=== PATIENT | male | born 1970 | race Caucasian/White ===

== ENCOUNTER 2022-03-19 09:40 | Inpatient (IN) | payer BC ==
[~2022-03-19] VITALS: Ht 182.9 cm; Wt 111.4 kg
[2022-03-19 10:20] LABS: BASOPHILS # (AUTO) 0.1 X10'3 (0-0.2); BASOPHILS % (AUTO) 0.5 % (0-1); EOSINOPHILS # (AUTO) 0.2 X10'3 (0-0.9); HEMATOCRIT 47.8 % (42.0-52.0); LYMPHOCYTES # (AUTO) 2.4 X10'3 (1.1-4.8); LYMPHOCYTES % (AUTO) 19.4 % (21-51); MEAN CORPUSCULAR HEMOGLOBIN 30.8 PG (27.0-31.0); MEAN CORPUSCULAR HGB CONC 33.4 g/dL (33.0-36.5); MEAN CORPUSCULAR VOLUME 92.3 FL (78-98); MEAN PLATELET VOLUME 8.8 FL (7.4-10.4); MONOCYTES # (AUTO) 1.4 X10'3 (0-0.9); NEUTROPHILS # (AUTO) 8.3 X10'3 (1.8-7.7); NEUTROPHILS % (AUTO) 67.1 % (42-75); PLATELET COUNT 255 X10'3 (140-440); RED BLOOD COUNT 5.18 X10'6 (4.70-6.10); RED CELL DISTRIBUTION WIDTH 12.9 % (11.5-14.5); WHITE BLOOD COUNT 12.4 X10'3 (4.5-11.0)
[2022-03-19 10:21] LABS: CLARITY,URINE CLEAR (Clear); COLOR,URINE YELLOW (Yellow); GLUCOSE, URINE NEGATIVE (Neg); KETONES,URINE NEGATIVE (Neg); LEUKOCYTE ESTERASE ,URINE NEGATIVE (Neg); NITRITES, URINE NEGATIVE (Neg); OCCULT BLOOD,URINE TRACE-INTACT (Neg); PH,URINE 5.5 (4.8-8.0); PROTEIN,URINE NEGATIVE (Neg); UROBILINOGEN,URINE 0.2 E.U/dL (0.2-1.0)
[2022-03-19 10:25] LABS: UA COLLECTION TYPE CLN CATCH MIDSTREAM
[2022-03-19 10:26] LABS: SQUAMOUS EPITHELIAL CELL,UR FEW /LPF (FEW)
[2022-03-19 10:27] LABS: BACTERIA,URINE FEW /HPF (Neg); RBC,URINE 0-2 /HPF (0-2); WBC,URINE 0-4 /HPF (0-4)
[2022-03-19 10:35] LABS: ALANINE AMINOTRANSFERASE 34 U/L (12-78); ALBUMIN 4.1 G/DL (3.4-5.0); ALKALINE PHOSPHATASE 93 IU/L (46-116); ANION GAP 7 (8-16); ASPARTATE AMINO TRANSFERASE 20 U/L (10-37); BILIRUBIN,TOTAL 0.6 MG/DL (0.1-1.0); BLOOD UREA NITROGEN 23 MG/DL (7-18); BUN/CREATININE RATIO 12.4 (5.4-32.0); CALCIUM 9.8 MG/DL (8.5-10.1); CHLORIDE 98 MMOL/L (99-107); CREATININE 1.85 MG/DL (0.60-1.10); GLUCOSE 184 MG/DL (70-104); LIPASE 148 U/L (73-393); SODIUM 136 MMOL/L (135-145); TOTAL PROTEIN 8.2 G/DL (6.4-8.2); eGFR 39 ML/MIN
--- NOTE | 2022-03-19 11:23 | NUR ---
Received a patient in bed 4 after a witnessed syncopal episode.
[2022-03-19] MEDS ORDERED: normal saline 1000ml 1,000 ML IV ONE (11:50)
[2022-03-19] MEDS ORDERED: OMEP20CA16 PO (13:20)
[2022-03-19] MEDS ORDERED: SERT-434 PO (13:20)
[2022-03-19] MEDS ORDERED: ALLO300T2 PO (13:20)
[2022-03-19] MEDS ORDERED: VALS320T2 PO (13:20)
[2022-03-19] MEDS ORDERED: BUPR200T41 PO (13:20)
[2022-03-19] MEDS ORDERED: LOP12.5T PO (13:20)
[2022-03-19] MEDS ORDERED: morphine 4 MG/ML inj SYRINge IV ONE (13:55)
[2022-03-19] MEDS ORDERED: ondansetron/PF 4mg/2ml inj IV ONE (13:55)
[2022-03-19] MEDS ORDERED: non-formulary drug (Omeprazole 1 CAP) PO PRN (13:55)
[2022-03-19] MEDS ORDERED: pantoprazole 40mg Tablet.DR PO PRN ×3 (13:57→14:00)
[2022-03-19] MEDS ORDERED: HYDROcodone/acetaminophen 10/325mg tab PO PRN (14:00)
[2022-03-19] MEDS ORDERED: mag hydrox/Alum hydrox/simeth 30ml oral suspension PO PRN (14:00)
[2022-03-19] MEDS ORDERED: morphine 2 MG/ML inj. syringe IV PRN (14:00)
[2022-03-19] MEDS ORDERED: ondansetron/PF 4mg/2ml inj IV PRN (14:00)
[2022-03-19] MEDS ORDERED: acetaminophen 325mg tablet PO PRN ×2 (14:00)
[2022-03-19] MEDS ORDERED: magnesium hydroxide 30ml (MOM) UD suspension PO PRN (14:00)
[2022-03-19] MEDS ORDERED: HYDROcodone/acetaminophen 5mg/325mg tablet PO PRN (14:00)
[2022-03-19] MEDS: normal saline 1000ml 1,000 ML IV SCH ×2 (14:12→23:07)
--- NOTE | 2022-03-19 17:25 | NUR ---
harjinder CRUMP in the room.
[2022-03-19] MEDS: metoprolol tartrate 12.5mg (1/2 tablet) PO SCH (17:33)
[2022-03-19] MEDS: morphine 2 MG/ML inj. syringe IV PRN (17:48)
--- NOTE | 2022-03-19 20:35 | NUR ---
PT HAD DINNER AND NOW IS TALKING WITH FAMILY AT BEDSIDE.
[2022-03-19] MEDS: docusate sod 100mg capsule PO SCH (20:39)
[2022-03-19 22:00] VITALS: BP 128/72
[2022-03-19] MEDS ORDERED: zolpidem 5mg tablet PO PRN (22:25)
[2022-03-19] MEDS ORDERED: diphenhydrAMINE 25mg capsule PO PRN (22:50)
[2022-03-19] MEDS: losartan 50mg tablet PO SCH (23:04)
[2022-03-19] MEDS: tamsulosin 0.4mg capsule PO SCH (23:05)
[2022-03-20] VITALS (16 sets, daily range): BP systolic 110–154; BP diastolic 63–93
[2022-03-20] MEDS: morphine 2 MG/ML inj. syringe IV PRN (02:32)
[2022-03-20 05:56] LABS: BASOPHILS % (AUTO) 0.4 % (0-1); EOSINOPHILS # (AUTO) 0.2 X10'3 (0-0.9); HEMATOCRIT 43.2 % (42.0-52.0); HEMOGLOBIN 14.7 g/dl (14.0-17.9); LYMPHOCYTES # (AUTO) 1.9 X10'3 (1.1-4.8); LYMPHOCYTES % (AUTO) 20.8 % (21-51); MEAN CORPUSCULAR HGB CONC 33.9 g/dL (33.0-36.5); MEAN CORPUSCULAR VOLUME 91.3 FL (78-98); MEAN PLATELET VOLUME 8.5 FL (7.4-10.4); MONOCYTES # (AUTO) 0.9 X10'3 (0-0.9); MONOCYTES % (AUTO) 10.2 % (2-12); NEUTROPHILS % (AUTO) 66.6 % (42-75); PLATELET COUNT 205 X10'3 (140-440); RED BLOOD COUNT 4.73 X10'6 (4.70-6.10); RED CELL DISTRIBUTION WIDTH 12.8 % (11.5-14.5); WHITE BLOOD COUNT 8.9 X10'3 (4.5-11.0)
[2022-03-20 06:01] LABS: ALBUMIN 3.4 G/DL (3.4-5.0); ANION GAP 8 (8-16); BLOOD UREA NITROGEN 20 MG/DL (7-18); BUN/CREATININE RATIO 11.2 (5.4-32.0); CALCIUM 9.1 MG/DL (8.5-10.1); CHLORIDE 102 MMOL/L (99-107); CREATININE 1.79 MG/DL (0.60-1.10); GLUCOSE 125 MG/DL (70-104); POTASSIUM 4.4 MMOL/L (3.5-5.1); SODIUM 137 MMOL/L (135-145); eGFR 40 ML/MIN
[2022-03-20] MEDS: normal saline 1000ml 1,000 ML IV SCH ×2 (07:41→20:33)
[2022-03-20] MEDS: allopurinol 300 MG tablet PO SCH (07:43)
[2022-03-20] MEDS: sertraline 50mg tablet PO SCH (07:44)
[2022-03-20] MEDS: docusate sod 100mg capsule PO SCH ×2 (07:44→20:32)
--- NOTE | 2022-03-20 09:30 | NUR ---
Received note that patient tenative scheduled time for surgery is around 12-1300 this afternoon. Advised patient and who is at bedside. I advised patient and I would keep them in the loop of any changes
[2022-03-20] MEDS: BUPROPION HCL 200 MG PO SCH (09:47)
--- NOTE | 2022-03-20 13:00 | NUR ---
Called Damien Or charge to get ETA for surgery per patients request. Per Damien it is now looking like maybe around 1500. Advised patient due to patient being asleep.
--- NOTE | 2022-03-20 15:30 | NUR ---
Called Damien the OR charge again about status for patients surgery. I went into patients room and spoke to the again due to patient being asleep. The OR is very backed up and it looks like the surgery will be later. I have no new time at this time. Patients said " Oh the doctor is going to be tired" I advised patients that the back up is not due to the urologist there are all kinds of surgeries going on. Patient still sleeping. All questions answered at this time and she knows that the OR zinc furnace charger Damien texted Dr Esquivel this am and advised that and patient would like to speak with Prior to surgery.
[2022-03-20] MEDS: metoprolol tartrate 12.5mg (1/2 tablet) PO SCH (17:00)
[2022-03-20] MEDS ORDERED: iohexol 350MG/ML 100ml bottle IV ONE (17:21)
[2022-03-20] MEDS ORDERED: midazolam 1 mg/ML 2ml injection ONE (17:34)
[2022-03-20] MEDS ORDERED: fentaNYL/PF 50MCG/1 ML 2ML syringe ONE (17:34)
[2022-03-20] MEDS ORDERED: clindamycin-Cleocin 900mg/D5W 50 ML IV ONE (17:59)
[2022-03-20] MEDS ORDERED: propofol inj 20 ML IV ONE (18:17)
--- NOTE | 2022-03-20 18:25 | NUR ---
Received from OR via , accompanied by Anesthesiologist and report given by Anesthesiolgist. PATIENT WAKING UP, NO S/S OF PAIN, V/S STABLE, SCD ON, CSM INTACT, NO DRAINAGE SURGICAL SIGHT CLEAR CYSTOSCOPY, 20G RUE
--- NOTE | 2022-03-20 18:27 | NUR ---
Problems reprioritized. Patient report given, questions answered & plan of care reviewed with Prudence RN.
--- NOTE | 2022-03-20 18:46 | NUR ---
RECEIVED REPORT FROM [facility] AND PATIENT WILL BE ON THE UNIT SHORTLY.
--- NOTE | 2022-03-20 18:56 | NUR ---
Patient in room [facility]. I have received report from HORACE CRUMP and had the opportunity to ask questions and assume patient care.
--- NOTE | 2022-03-20 19:05 | NUR ---
PATIENT A&OX4, DENIES PAIN, V/S STABLE, SCD ON, CSM INTACT, NO DRAINAGE SURGICAL SIGHT CLEAR CYSTOSCOPY, 20G RUE. TAKEN TO [facility] AND HOOKED UP TO MONITORS IN ROOM AND REPORT GIVEN TO RN WHO HAS TAKEN OVER PATIENT CARE.
[2022-03-20] MEDS: tamsulosin 0.4mg capsule PO SCH (20:32)
[2022-03-20] MEDS: losartan 50mg tablet PO SCH (20:32)
[2022-03-21] VITALS: BP 133/86
[2022-03-21 05:59] LABS: BASOPHILS # (AUTO) 0.1 X10'3 (0-0.2); BASOPHILS % (AUTO) 0.6 % (0-1); EOSINOPHILS % (AUTO) 0.1 % (0-6); HEMATOCRIT 44.3 % (42.0-52.0); HEMOGLOBIN 15.3 g/dl (14.0-17.9); LYMPHOCYTES # (AUTO) 0.8 X10'3 (1.1-4.8); LYMPHOCYTES % (AUTO) 9.2 % (21-51); MEAN CORPUSCULAR HEMOGLOBIN 31.3 PG (27.0-31.0); MEAN CORPUSCULAR HGB CONC 34.4 g/dL (33.0-36.5); MEAN CORPUSCULAR VOLUME 90.9 FL (78-98); MEAN PLATELET VOLUME 8.7 FL (7.4-10.4); MONOCYTES # (AUTO) 0.3 X10'3 (0-0.9); MONOCYTES % (AUTO) 3.1 % (2-12); NEUTROPHILS # (AUTO) 7.5 X10'3 (1.8-7.7); PLATELET COUNT 225 X10'3 (140-440); RED BLOOD COUNT 4.88 X10'6 (4.70-6.10); RED CELL DISTRIBUTION WIDTH 12.8 % (11.5-14.5); WHITE BLOOD COUNT 8.6 X10'3 (4.5-11.0)
[2022-03-21 06:00] VITALS: BP 128/59
[2022-03-21] MEDS: normal saline 1000ml 1,000 ML IV SCH (06:00)
[2022-03-21 06:06] LABS: ALBUMIN 3.5 G/DL (3.4-5.0); ANION GAP 9 (8-16); BLOOD UREA NITROGEN 16 MG/DL (7-18); BUN/CREATININE RATIO 10.6 (5.4-32.0); CALCIUM 8.7 MG/DL (8.5-10.1); CHLORIDE 101 MMOL/L (99-107); CREATININE 1.51 MG/DL (0.60-1.10); GLUCOSE 161 MG/DL (70-104); POTASSIUM 4.2 MMOL/L (3.5-5.1); SODIUM 137 MMOL/L (135-145); TOTAL CARBON DIOXIDE 26.6 MMOL/L (24-32); eGFR 49 ML/MIN
--- NOTE | 2022-03-21 06:44 | NUR ---
Problems reprioritized. Patient report given, questions answered & plan of care reviewed with EDUARDO CRUMP.
--- NOTE | 2022-03-21 06:57 | NUR ---
Patient in room [facility]. I have received report from ALISIA Devi and had the opportunity to ask questions and assume patient care.
[2022-03-21] MEDS: BUPROPION HCL 200 MG PO SCH (08:29)
[2022-03-21] MEDS: allopurinol 300 MG tablet PO SCH (08:29)
[2022-03-21] MEDS: docusate sod 100mg capsule PO SCH (08:29)
[2022-03-21] MEDS: sertraline 50mg tablet PO SCH (08:30)
--- NOTE | 2022-03-21 11:38 | NUR ---
Patient was discharged at 1115 with instructions and verbalizing understanding of instructions in wheelchair accompanied by nursing staff and going home via private vehicle. All lines and tubes including PIV with cannula intact were removed. Education has been provided and all questions were answered. Patient will make a follow up appointment with MD. Patient is stable and appropriate for discharge.
== END 2022-03-21 11:15 | disposition home or self-care (01) | DRG 660 ==
LOC: ER 09:40 → ED HOLD 13:58 → EDBEDREQ 21:07 → SUR 3N 22:15
PROVIDERS: ADMIT Internal Medicine; ATTEND Internal Medicine
PROC: 0T778DZ Dilation of Left Ureter with Intraluminal Device, Via Natural or Artificial Opening Endoscopic (ICD-10-PCS; 2022-03-20)
PROC: 0TC78ZZ Extirpation of Matter from Left Ureter, Via Natural or Artificial Opening Endoscopic (ICD-10-PCS; principal; 2022-03-20 17:15)
DX: N13.9 Obstructive and reflux uropathy, unspecified (principal); N17.9 Acute kidney failure, unspecified; F32.A Depression, unspecified; G47.30 Sleep apnea, unspecified; K21.9 Gastro-esophageal reflux disease without esophagitis; R16.1 Splenomegaly, not elsewhere classified; R55 Syncope and collapse; I10 Essential (primary) hypertension; N20.2 Calculus of kidney with calculus of ureter; K76.0 Fatty (change of) liver, not elsewhere classified; Z79.899 Other long term (current) drug therapy; Z87.442 Personal history of urinary calculi; Z88.0 Allergy status to penicillin
CPT/HCPCS: 99285; Z7506; Z7508; 36415; 74176; 76000; 80048; 80053; 81001; 82948; 83690; 84484; 85025; 87081; A4618; A7000; C1769; C2617; G0378; J2250; J2270; J2405; J2704; J3010; J3490; J7030; J7042; Q0163; Q9967